=== PATIENT | female | born 1985 ===

== ENCOUNTER 2018-05-04 19:40 | Emergency (ER) | payer BC ==
[~2018-05-04] VITALS: Ht 152.4 cm; Wt 58.1 kg
--- NOTE | 2018-05-04 20:06 | NUR ---
[facility] at bedside for patient report
--- NOTE | 2018-05-04 20:10 | NUR ---
ER at bedside
[2018-05-04] MEDS ORDERED: ONDANSETRON ODT 4 MG TAB.RAPDIS SL ONE (20:15)
[2018-05-04] MEDS ORDERED: HYDROCODONE/APAP 10-325 MG TABLET PO ONE (20:15)
[2018-05-04] MEDS ORDERED: ONDANSETRON ODT 4 MG TAB.RAPDIS ONE (20:22)
[2018-05-04] MEDS ORDERED: HYDROCODONE/APAP 10-325 MG TABLET ONE (20:22)
--- NOTE | 2018-05-04 21:22 | NUR ---
Patient taken to CT via gurney with transporter. no acute distress.
--- NOTE | 2018-05-04 22:58 | NUR ---
Patient discharged to home in stable conditon. Written and verbal after care instructions given. Patient verbalizes understanding of instructions. Ambulated from ER with stable gait. All belongings with patient. patient will be driven home by brother in private vehicle. VSS
[2018-05-04 22:59] VITALS: BP 121/75
== END 2018-05-04 22:59 | disposition home or self-care (01) ==
LOC: ER 19:44
DX: G89.11 Acute pain due to trauma (principal); M54.2 Cervicalgia; R07.89 Other chest pain; M25.512 Pain in left shoulder; M25.552 Pain in left hip; M79.605 Pain in left leg; M25.532 Pain in left wrist
CPT/HCPCS: 36415; 72125; 73030; 73110; 73502; 73590; A4663; Q0162